=== PATIENT | male | born 1995 | race Caucasian/White ===

== ENCOUNTER 2021-09-08 18:27 | Emergency (ER) | payer SELFPAY ==
[2021-09-08 18:39] VITALS: BP 135/77; PULSE 80; RESP 18; TEMP 36.8; O2SAT 100; BMI 22.7
--- NOTE | 2021-09-08 18:48 | ED_ITS ---
HPI - Dental/Oral General: Chief complaint: Dental/Oral Stated complaint: tooth ache Time Seen by Provider: 09/08/21 18:42 Source: patient Mode of arrival: ambulatory Limitations: no limitations History of Present Illness: HPI Narrative: 25-year-old male states he has been having left lower dental pain over the last week. States pain sharp in nature rates it a 7 out of 10 and a history of poor dentition states he had an appoint with dentist next week denies any fever denies any trismus denies any difficulty swallowing denies any worsening improving factors. Associated symptoms: Denies fever(s) Review of Systems Const: Denies: fever(s), chills, body aches or change in appetite Eyes: Denies: blurry vision or eye discomfort ENMT: Reports: dental pain Card: Denies: chest pain Resp: Denies: dyspnea GI: Denies: abdominal pain, nausea, vomiting or diarrhea : Denies: dysuria Musc: Denies: neck pain or back pain Skin/Breast: Denies: rash Neuro: Denies: headache(s) Psych: Denies: depression Elliott/Lymph: Denies: easy bruising All/Imm: Denies: urticaria Physical Exam Const: COMMON NORMALS: no acute distress, patient oriented x3 and healthy appearing HENMT: COMMON NORMALS: normocephalic and atraumatic HEAD & SCALP: normocephalic and atraumatic OTHER: No abscess or trismus does have poor dentition to left lower molar Eye: COMMON NORMALS: Equal, round and reactive pupils present and EOMs intact bilaterally PUPIL: Yes Equal, round and reactive pupils present Neck/C-Spine: COMMON NORMALS: full ROM and supple Chest: COMMONS NORMALS: normal inspection of the chest and normal palpation of entire chest wall Resp: COMMON NORMALS: normal respiratory effort, No retractions, No use of accessory muscles and clear to auscultation bilaterally AUSCULTATION: clear to auscultation bilaterally Cardio: COMMON NORMALS: regular rate, regular rhythm and No murmurs present (Cardio) RATE: regular rate RHYTHM: regular rhythm GI: COMMON NORMALS: Normal to inspection, nondistended, normoactive bowel sounds present, Soft to palpation, non-tender and no masses PALPATION: Yes Soft to palpation Extremity: COMMON NORMALS: normal to inspection and full ROM Neuro: COMMON NORMALS: patient oriented x3, moves all extremities and no focal motor deficits Psych: COMMON NORMALS: mental status grossly normal, Normal thought process present and cooperative THOUGHT PROCESS: Normal thought process present Skin: COMMON NORMALS: no rashes or lesions noted and no wounds GENERAL SKIN EXAM: no rashes or lesions noted Course Vital Signs: Vital signs: Vital Signs Temperature 98.3 F 09/08/21 18:39 Pulse Rate 80 09/08/21 18:39 Respiratory Rate 18 09/08/21 18:39 Blood Pressure 135/77 09/08/21 18:39 Pulse Oximetry 100 09/08/21 18:39 MDM - Dental/Oral MDM Narrative: Medical decision making narrative: Patient presents with dental pain is no signs of abscess or trismus he is to follow-up with dentist as sche duled next week he is to take meds as prescribed Naprosyn and Keflex return if worsening he understands agrees to plan. 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
[2021-09-08] MEDS: cephALEXin 500 mg Capsule PO (18:55)
[2021-09-08] MEDS: HYDROcodone-acetaminophen 5-325 mg Tablet 1 TAB PO (18:55)
== END 2021-09-08 18:59 | disposition home or self-care (01) ==
PROVIDERS: Emergency Provider Emergency Medicine; PCP Nurse Practitioner
DX: K08.89 Other specified disorders of teeth and supporting structures (principal)
CPT/HCPCS: 99283

== ENCOUNTER 2023-12-29 02:56 | Emergency (ER) | payer SELFPAY ==
[2023-12-29 03:05] VITALS: BP 146/95; PULSE 90; RESP 18; TEMP 36.6; O2SAT 98; BMI 23.6
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
[2023-12-29 04:27] VITALS: BP 117/49; PULSE 78; RESP 18; O2SAT 94
== END 2023-12-29 04:23 | disposition home or self-care (01) ==
PROVIDERS: Emergency Provider Emergency Medicine
DX: S80.211A Abrasion, right knee, initial encounter (principal); Y04.2XXA Assault by strike against or bumped into by another person, initial encounter; Y92.481 Parking lot as the place of occurrence of the external cause
CPT/HCPCS: 73562; 99283